=== PATIENT | male | born 1975 | race Caucasian/White ===

== ENCOUNTER 2018-02-21 17:27 | Emergency (ER) | payer OTHER ==
--- NOTE | 2018-02-21 18:03 | EDPHY ---
H & P Stated Complaint: Back pain/chest pain Time Seen by Provider: 02/21/18 18:02 HPI/ROS: CHIEF COMPLAINT: Back pain and chest pain HISTORY OF PRESENT ILLNESS: The patient presents the ED for evaluation of back pain and chest pain. The patient reportedly developed a knot in his left rhomboid muscle today. The patient states this is a fairly common muscular complaint for him. He went got a massage which was fairly aggressive. This resulted in significant improvement of his symptoms. Shortly after his massage he had an unexpected bandlike pressure across his anterior chest. The symptoms lasted approximately 15 min and resolved. He is now entirely asymptomatic. The patient reports he exercises frequently without chest pain or shortness of breath. He has no risk factors for coronary artery disease. He denies any family history of connective tissue disorders. The patient denies any fever cough or congestion. The patient is now somewhat reluctant about getting further care in the emergency department as his symptoms have improved. REVIEW OF SYSTEMS: A comprehensive 10 point review of systems is otherwise negative aside from elements mentioned in the history of present illness. Source: Patient - Personal History Current Tetanus/Diphtheria Vaccine: Unsure - Medical/Surgical History Hx Asthma: No Hx Chronic Respiratory Disease: No Hx Diabetes: No Hx Cardiac Disease: No Hx Renal Disease: No Hx Cirrhosis: No Hx Alcoholism: No Other PMH: Denies - Social History Smoking Status: Never smoked - Physical Exam Exam: General Appearance: Alert, no distress Eyes: Pupils equal and round no pallor or injection ENT, Mouth: Mucous membranes moist Respiratory: There are no retractions, lungs are clear to auscultation Cardiovascular: Regular rate and rhythm Gastrointestinal: Abdomen is soft and nontender, no masses, bowel sounds normal Neurological: A&O, normal motor function, normal sensory exam, normal cranial nerves Skin: Warm and dry, no rashes Musculoskeletal: Neck is supple nontender Extremities: symmetrical, full range of motion, 2+ radial pulse bilaterally, 2 + dorsalis pedis pulse bilaterally Psychiatric: Patient is oriented X 3, there is no agitation Constitutional: Initial Vital Signs Temperature (C) 37.1 C 02/21/18 17:37 Heart Rate 86 02/21/18 17:37 Respiratory Rate 18 02/21/18 17:37 Blood Pressure 130/80 H 02/21/18 17:37 O2 Sat (%) 94 02/21/18 17:37 O2 Delivery Mode Room Air Allergies/Adverse Reactions: No Known Allergies Allergy (Unverified 02/21/18 17:42) Home Medications: Medication Instructions Recorded NK [No Known Home Meds] 02/21/18 Medical Decision Making - Diagnostics EKG Interpretation: EKG: Complete interpretation has been separately recorded in the [employer] archive. Summary impression: Sinus rhythm, rate 78, early repolarization is noted. Imaging Results: Chest x-ray PA/lateral: Images reviewed by myself. Impression: Normal heart size, normal lung parenchyma. Normal chest x-ray ED Course/Re-evaluation: The patient has no risk factors for coronary artery disease and presents to the ED after an episode of atypical chest pain. I did tell the patient that I cannot fully exclude the possibility of a cardiac condition however was felt to be unlikely. He was offered limited testing including EKG, chest x-ray and troponin which he has consented to. EKG demonstrates only repolarization without evidence of an injury pattern. Patient's troponin is 0. Patient's chest x-ray demonstrates no evidence of acute disease. Heart score is 0. Patient would like to be discharged home. He understands to follow up with Cardiology for any mild lingering symptoms. The patient should clearly return to the ED for severe chest pain, shortness of breath, the development of neurologic symptoms or other concerns. Differential Diagnosis: Differential diagnosis considered includes pneumothorax, pericarditis, myocardial infarction Departure - Departure Disposition: Home, Routine, Self-Care Clinical Impression: Chest pain Condition: Good Instructions: Chest Pain (ED) Additional Instructions: 1. Based upon the testing done in the Emergency Department today we see no evidence of a heart attack. 2. We are unable to fully exclude coronary artery disease based upon the testing available in the Emergency Department. 3. For this reason, we would like you to be seen by cardiology for consideration of additional testing within the next 3 days for any ongoing mild symptoms 4. Please contact the program management professional you have been referred to schedule this appointment as soon as possible. Their offices are typically open from 8:30am- 5pm M-F. 5. Please return to the Emergency Department immediately for any recurrent chest pain, difficulty breathing or other concerns. Referrals: Yazmin Dietz MD [Medical Doctor] - As per Instructions
--- NOTE | 2018-02-21 18:51 | CPEKG ---
Test Reason : OPEN Blood Pressure : / mmHG Vent. Rate : 078 BPM Atrial Rate : 079 BPM P-R Int : 143 ms QRS Dur : 089 ms QT Int : 377 ms P-R-T Axes : 073 050 027 degrees QTc Int : [address] elev, probable normal early repol pattern Confirmed by Luis Alberto Dawson ([id number]) on 02/21/2018 6:51:24 PM Referred By: Confirmed By:Luis Alberto Dawson
[2018-02-21 19:04] VITALS: BP 125/86
== END 2018-02-21 19:07 | disposition home or self-care (01) ==
DX: R07.9 Chest pain, unspecified (principal)
CPT/HCPCS: 84484-PO